=== PATIENT | male | born 1945 | race African-American/Black ===

== ENCOUNTER 2017-05-09 21:27 | Inpatient (IN) | payer MEDICARE, OTHER ==
[~2017-05-09] VITALS: Ht 167.6 cm; Wt 95.3 kg
--- NOTE | 2017-05-09 22:17 | NUR ---
71 Y/O MALE PLACED IN BED 2 WITH POSSIBLE UPPER GI BLEED. H/L 18 G PLACED LEFT AC. BLOOD DRAWN AND SENT.
[2017-05-09 22:21] LABS: BASOPHILS % (AUTO) 0.3 % (0.0-2.0); EOSINOPHILS # (AUTO) 0.6 /CMM (0.0-0.7); EOSINOPHILS % (AUTO) 4.9 % (0.0-6.0); HEMATOCRIT 50 % (39-51); HEMOGLOBIN 16.3 g/dL (13.5-17.5); LYMPHOCYTES # (AUTO) 1.2 /CMM (0.8-4.8); LYMPHOCYTES % (AUTO) 10.9 % (20.0-44.0); MEAN CORPUSCULAR HEMOGLOBIN 29 PG (26.0-33.0); MEAN CORPUSCULAR HGB CONC 33 g/dl (31.0-36.0); MEAN CORPUSCULAR VOLUME 90 fL (80-96); MONOCYTES # (AUTO) 0.3 /CMM (0.1-1.30); MONOCYTES % (AUTO) 2.7 % (2.0-12.0); NEUTROPHILS # (AUTO) 9.2 /CMM (1.8-8.9); NEUTROPHILS % (AUTO) 81.2 % (43.0-81.0); PLATELET COUNT (AUTO) 200 /CMM (150-450); RDW COEFFICIENT OF VARIATION 15.6 (11.5-15.0); RED BLOOD CELL COUNT(AUTO) 5.55 MIL/uL (4.5-6.0); WHITE BLOOD COUNT (AUTO) 11.3 K/uL (4.3-11.0)
[2017-05-09 22:32] LABS: CALCIUM, SERUM 9.6 mg/dL (8.5-10.1); CARBON DIOXIDE 32 mmol/L (21-32); CHLORIDE 110 mmol/L (98-107); GLUCOSE 118 mg/dL (74-106); SODIUM SERUM 149 mmol/L (136-145); UREA NITROGEN, BLOOD 21 mg/dL (7-18)
[2017-05-09 22:34] LABS: INR 0.98 (0.87-1.13)
[2017-05-09 22:38] LABS: TROPONIN I < 0.017 ng/mL (0.00-0.056)
[2017-05-09 22:39] LABS: ALANINE AMINOTRANSFERASE 20 U/L (12-78); ALBUMIN 3.1 g/dL (3.4-5.0); ALKALINE PHOSPHATASE 139 U/L (46-116); ASPARTATE AMINOTRANSFERASE 14 U/L (15-37); BILIRUBIN,DIRECT 0.2 mg/dL (0.0-0.2); BILIRUBIN,TOTAL 0.6 mg/dL (0.2-1.0); LIPASE 140 U/L (73-393); TOTAL PROTEIN, SERUM 9.2 g/dL (6.4-8.2)
--- NOTE | 2017-05-09 22:50 | NUR ---
PT HAS OXYGEN MASK ON TO MAINTAIN SATS. PT DROOLING COFFEE GROUND SUBSTANCE. AWAKE AND ALERT, BUT CONFUSED.
[2017-05-09] MEDS ORDERED: PANTOPRAZOLE 40 MG VIAL IV ONE (23:00)
[2017-05-09] MEDS ORDERED: PANTOPRAZOLE 40 MG VIAL ONE (23:20)
--- NOTE | 2017-05-09 23:23 | NUR ---
PT GIVEN IV PROTONIX. NO CHANGE IN CONDITION.
--- NOTE | 2017-05-09 23:38 | NUR ---
PAGED RENTAL SALESPERSON PANEL DR MCNAIR
[2017-05-10] MEDS ORDERED: ZOLPIDEM TARTRATE 5 MG TABLET PO PRN (00:30)
[2017-05-10] MEDS ORDERED: ONDANSETRON HCL/PF 4 MG/2 ML VIAL IVP PRN (00:30)
[2017-05-10] MEDS ORDERED: ACETAMINOPHEN 325 MG TABLET PO PRN (00:30)
[2017-05-10] MEDS ORDERED: Z GUARD REMEDY 2 OZ OINT TP PRN (00:30)
[2017-05-10] MEDS ORDERED: MAGNESIUM HYDROXIDE 30 ML UDC PO PRN (00:30)
[2017-05-10] MEDS ORDERED: MAG HYDROX/AL HYDROX/SIMETH 30 ML UDC PO PRN (00:30)
[2017-05-10] MEDS ORDERED: PANTOPRAZOLE 40 MG VIAL IV ONE (01:00)
--- NOTE | 2017-05-10 01:17 | NUR ---
PT ADMITTED TO DR. MCNAIR. ADMITTING ORDERS PLACED. ROOM OBTAINED REPORT CALLED TO OWEN. PREPARING PT FOR TRANSFER TO FLOOR.
--- NOTE | 2017-05-10 01:40 | NUR ---
RN CONNIE ADMISSION NOTES, RECEIVED PATIENT 71YO ADMITTED FROM EMERGENCY ROOM, ACCOMPANIED BY 2 STAFF VIA STRETCHER, UNDER THE MEDICAL SERVICES OF DR MCNAIR, WITH ADMITTING DIAGNOSES OF GI BLEED, ENCEPHALOPATHY CHRONIC, H/O PARALYSIS, AFIB, CARDIOMEGALY, GT IN PLACE, H/ PACEMAKER, PATIENT ON 6L VIA MASK WITH SATURATION LEVEL OF 94% AT THIS TIME, LUNGS SOUNDS CLEAR UPON AUSCULTATION, NO SOB OR ACUTE DISTRESS NOTED, AFEBRILE AT THIS TIME, SKIN DRY, WARM AND INTACT, NO ACTIVE BLEEDING NOTED AT THIS TIME, IV SITE IN LEFT ANTECUBITAL, BOWEL MOVEMENT NOTED AT THIS TIME, POSITIVE BOWEL SOUNDS UPON AUSCULTATION, BED BATH GIVEN UPON ADMISSION, KEPT DRY AND CLEAN, BED LOCKED AND IN LOWEST POSITION, CALL LIGHT W/I REACH, WILL CONTINUE TO MONITOR CLOSELY.
--- NOTE | 2017-05-10 01:40 | NUR ---
RN CONNIE ADMISSION NOTES, UPON ADMISISION VS FOLLOW 107/80, 97.0, 107, 22, 94% ON 6LMP VIA MASK, NO S/S OF ANY ACUTE DISTRESS NOTED AT THIS TIME.
--- NOTE | 2017-05-10 01:40 | NUR ---
PT TRANSFERRED TO CONNIE.
[2017-05-10] MEDS: IV NS 0.9% 1,000 ML IV PRN (02:17)
[2017-05-10 04:00] VITALS: BP 149/85
--- NOTE | 2017-05-10 06:50 | NUR ---
RN CONNIE CLOSING NOTES, PATIENT SLEEPING IN BED, BREATHING EVEN AND UNLABORED , NO S/S OF SOB OR RESPIRATORY DISTRESS NOTED ON 6LMP VIA MASK, SATURATION AT THIS TIME 98%, KEPT DRY AND CLEAN, PIV LINE IN LEFT AC, INTACT AND PATENT, ON IVF AT 75ML/HR, NO S/S OF ACTIVE BLEEDING NOTED, NO COFFEE GROUND EMESIS EPISODES THROUGHOUT THE SHIFT,INFUSING WELL AND PATIENT TOLERATING WELL, BED LOCKED AND IN LOWEST POSITION, CALL LIGHT W/I REACH, WILL ENDORSE CONTINUITY OF CARE TO NEXT NURSE.
[2017-05-10 08:00] VITALS: BP 101/69
--- NOTE | 2017-05-10 08:00 | NUR ---
CONNIE RN NOTES, PATIENT SLEEPING IN BED,AWAKE WHEN CALLING HIS NAME , BREATHING EVEN BUT SLIGHTLY LABORED , N 6LMP VIA MASK, SATURATION AT THIS TIME 98%, KEPT DRY AND CLEAN,HL LINE IN LEFT AC, INTACT AND PATENT, ON IVF AT 75ML/HR, NO S/S OF ACTIVE BLEEDING NOTED, NO COFFEE GROUND EMESIS EPISODES AT THIS TIME AND PATIENT , BED LOCKED AND IN LOWEST POSITION, CALL LIGHT W/I REACH, WILL CONT OF CARE CLOSELY, ON TELE MONITOR WITH 1 ST WITH IST DEGREE AV BLOCK ,
[2017-05-10] MEDS: PANTOPRAZOLE 40 MG VIAL IV SCH (08:38)
[2017-05-10] MEDS ORDERED: MULT-213 GT (08:57)
[2017-05-10] MEDS ORDERED: MONT10TA22 GT (08:57)
[2017-05-10] MEDS ORDERED: BISA10SU8 RC (08:57)
[2017-05-10] MEDS ORDERED: CARV3.122 GT (08:57)
[2017-05-10] MEDS ORDERED: ASCO-340 GT (08:57)
[2017-05-10] MEDS ORDERED: ATRO10DR SL (08:57)
[2017-05-10] MEDS ORDERED: LACT-96 GT (08:57)
[2017-05-10] MEDS ORDERED: LACT100C2 GT (08:57)
[2017-05-10] MEDS ORDERED: NA P133E RC (08:57)
[2017-05-10] MEDS ORDERED: IPRA3AMP IH (08:57)
[2017-05-10] MEDS ORDERED: ACET-868 GT (08:57)
--- NOTE | 2017-05-10 09:56 | NUR ---
CONNIE RN NOTE SPOKE WITH DR DUARTE NOTIFIED THAT PATIENT WITH CHEST CONGESTION AND CHEST X RAY RESULT ALSO NOTIFIED THAT ON 6L SIMPLE MASK SAT 93% , STATED TO DO ABG CALLED YVETTE CHAPIN TO DO ABG, WILL F\U
[2017-05-10 10:40] LABS: ABG BASE EXCESS 3.1 mmol/L; ABG PO2 85.1 mmHg (75.0-100.0); AaDO2 179.6 mmHg; COHb 0.4 % (0.5-1.5); MetHb 0.5 % (0.0-1.5); O2Hb 95.1 % (94.0-97.0); SITE, ABG Left Brachial; VENT MODE, BG SIMPLE MASK
--- NOTE | 2017-05-10 10:42 | NUR ---
CONNIE RN NOTE SPOKE WITH DR MCNAIR NOTIFIED THAT PATIENT ON SIMPLE MASK SAT 93% ALSO OK TO HOLD G TUBE FEEDING AT THIS D\C LIQUID DIET
[2017-05-10] MEDS ORDERED: BISACODYL SUPP (10 MG) 10 MG/SUPP.RECT SUPP.RECT RC PRN (11:00)
[2017-05-10 11:50] LABS: BASOPHILS % (AUTO) 0.3 % (0.0-2.0); EOSINOPHILS # (AUTO) 0.3 /CMM (0.0-0.7); HEMATOCRIT 43 % (39-51); HEMOGLOBIN 14.3 g/dL (13.5-17.5); LYMPHOCYTES # (AUTO) 1.3 /CMM (0.8-4.8); LYMPHOCYTES % (AUTO) 15.2 % (20.0-44.0); MEAN CORPUSCULAR HEMOGLOBIN 30 PG (26.0-33.0); MEAN CORPUSCULAR HGB CONC 34 g/dl (31.0-36.0); MEAN CORPUSCULAR VOLUME 88 fL (80-96); MONOCYTES # (AUTO) 0.5 /CMM (0.1-1.30); MONOCYTES % (AUTO) 5.6 % (2.0-12.0); NEUTROPHILS # (AUTO) 6.6 /CMM (1.8-8.9); NEUTROPHILS % (AUTO) 75.9 % (43.0-81.0); PLATELET COUNT (AUTO) 173 /CMM (150-450); RDW COEFFICIENT OF VARIATION 15.4 (11.5-15.0); RED BLOOD CELL COUNT(AUTO) 4.81 MIL/uL (4.5-6.0); WHITE BLOOD COUNT (AUTO) 8.6 K/uL (4.3-11.0)
[2017-05-10 12:00] VITALS: BP_SYST 103; BP_SYST 129; BP_DIAS 67; BP_DIAS 69
--- NOTE | 2017-05-10 12:09 | NUR ---
vani rn note per dr carlson keep npo till gi consult came ,ok to cont ivf as ordered
[2017-05-10] MEDS: MONTELUKAST SODIUM (10MG) 10 MG TABLET GT SCH (12:25)
[2017-05-10] MEDS: CARVEDILOL 3.125 MG TABLET GT SCH ×2 (12:25→16:33)
--- NOTE | 2017-05-10 13:19 | NUR ---
MS RN NOTE ENDORSED CARE TO DELMAR CHAN
[2017-05-10] MEDS: IPRATROPIUM NEB FS 0.5 MG/2.5 ML AMPUL.NEB NEB SCH ×3 (15:12→23:22)
[2017-05-10] MEDS: ALBUTEROL HALF STRENGTH 1.25 MG/3 ML VIAL.NEB NEB SCH ×4 (15:12→23:21)
--- NOTE | 2017-05-10 15:39 | NUR ---
RN NOTES RECEIVED PT FROM ROCIO MCFARLAND FOR CONTINUITY OF CARE. PT ON 6L FACE MASK SATING WELL NO SOB OR DISTRESS. A&0X1, GRUNTS. SR ON THE TELE LEANNE WITH 1ST DEGREE AV BLOCK. L ARM 18G IV SITE INTACT. IVF AT 75ML/HR. PT CURRENTLY NPO. CALL LIGHT WITHIN REACH, BED LOCKED AND IN LOWEST POSITION, WILL CONT TO LEANNE
[2017-05-10 16:00] VITALS: BP 102/67
[2017-05-10] MEDS: PIPERACILLIN /TAZOBACTAM 3.375 G in IV D5W 50 ML IV SCH ×2 (16:33→21:08)
--- NOTE | 2017-05-10 18:33 | NUR ---
RN NOTES PT REMAINED IN STABLE CONDITION THROUGHOUT THE SHIFT ALL NEEDS MET. TOLERATING O2. SAT. CONSENT OBTAINED FOR EGD FROM [facility]. WILL ENDORSE TO ONCOMING SHIFT.
[2017-05-10 20:00] VITALS: BP 110/58
--- NOTE | 2017-05-10 20:00 | NUR ---
RN INITIAL NOTES RECEIVED PT IN BED.PT IS CONFUSED. PT ON 6L FACE MASK SATING WELL NO SOB OR DISTRESS. A&0X1, GRUNTS. L ARM 18G IV SITE INTACT. IVF AT 75ML/HR. CALL LIGHT WITHIN REACH, BED LOCKED AND IN LOWEST POSITION, WILL CONT TO LEANNE
[2017-05-11] VITALS: BP 110/58
[2017-05-11] MEDS: IPRATROPIUM NEB FS 0.5 MG/2.5 ML AMPUL.NEB NEB SCH ×6 (03:22→23:19)
[2017-05-11] MEDS: ALBUTEROL HALF STRENGTH 1.25 MG/3 ML VIAL.NEB NEB SCH ×6 (03:22→23:19)
[2017-05-11 04:00] VITALS: BP 110/58
[2017-05-11] MEDS: PIPERACILLIN /TAZOBACTAM 3.375 G in IV D5W 50 ML IV SCH ×4 (04:00→22:25)
[2017-05-11] MEDS: IV NS 0.9% 1,000 ML IV PRN ×2 (04:44→05:31)
--- NOTE | 2017-05-11 06:33 | NUR ---
RN INITIAL NOTES NO CHANGE IN PT CONDITION OVER SHIFT. PT RESTING IN BED.PT IS CONFUSED. PT ON 5L NC, SATING WELL NO SOB OR DISTRESS. A&0X1, GRUNTS. L ARM 18G IV SITE INTACT. IVF AT 75ML/HR. CALL LIGHT WITHIN REACH, BED LOCKED AND IN LOWEST POSITION, WILL ENDORSE TO NEXT SHIFT.
[2017-05-11 07:22] LABS: BASOPHILS % (AUTO) 0.4 % (0.0-2.0); EOSINOPHILS # (AUTO) 0.5 /CMM (0.0-0.7); EOSINOPHILS % (AUTO) 5.8 % (0.0-6.0); HEMATOCRIT 41 % (39-51); HEMOGLOBIN 13.4 g/dL (13.5-17.5); LYMPHOCYTES # (AUTO) 1.1 /CMM (0.8-4.8); MEAN CORPUSCULAR HEMOGLOBIN 29 PG (26.0-33.0); MEAN CORPUSCULAR HGB CONC 33 g/dl (31.0-36.0); MEAN CORPUSCULAR VOLUME 90 fL (80-96); MONOCYTES # (AUTO) 0.5 /CMM (0.1-1.30); MONOCYTES % (AUTO) 6.1 % (2.0-12.0); NEUTROPHILS % (AUTO) 73.7 % (43.0-81.0); PLATELET COUNT (AUTO) 150 /CMM (150-450); RDW COEFFICIENT OF VARIATION 15.5 (11.5-15.0); RED BLOOD CELL COUNT(AUTO) 4.57 MIL/uL (4.5-6.0); WHITE BLOOD COUNT (AUTO) 8.2 K/uL (4.3-11.0)
[2017-05-11 07:46] LABS: ALANINE AMINOTRANSFERASE 12 U/L (12-78); ALBUMIN 2.3 g/dL (3.4-5.0); ALKALINE PHOSPHATASE 98 U/L (46-116); ASPARTATE AMINOTRANSFERASE 21 U/L (15-37); CALCIUM, SERUM 8.6 mg/dL (8.5-10.1); CARBON DIOXIDE 30 mmol/L (21-32); CHLORIDE 112 mmol/L (98-107); CREATININE 1.1 mg/dL (0.6-1.3); GLUCOSE 86 mg/dL (74-106); PHOSPHORUS 3.7 mg/dL (2.5-4.9); POTASSIUM 3.8 mmol/L (3.5-5.1); SODIUM SERUM 149 mmol/L (136-145); TOTAL PROTEIN, SERUM 7.1 g/dL (6.4-8.2); UREA NITROGEN, BLOOD 23 mg/dL (7-18)
[2017-05-11 08:00] VITALS: BP 101/79
[2017-05-11] MEDS: MONTELUKAST SODIUM (10MG) 10 MG TABLET GT SCH (09:00)
[2017-05-11] MEDS: CARVEDILOL 3.125 MG TABLET GT SCH ×2 (09:00→16:33)
[2017-05-11] MEDS: PANTOPRAZOLE 40 MG VIAL IV SCH (09:00)
[2017-05-11 09:12] LABS: CHOLESTEROL 109 mg/dL (<200); HDL CHOLESTEROL 38 mg/dL (40-60); LDL 69 mg/dL (0-99); TRIGLYCERIDES 52 mg/dL (30-150)
--- NOTE | 2017-05-11 15:00 | NUR ---
MED SURGE NOTE PT RETURNED FROM EGD. PT STABLE. PT SPO2 97% B/P 131/83 [id number]. ALL SAFETY MEASURES IN PLACE WILL CONTINUE TO MONITOR CLOSELY.
--- NOTE | 2017-05-11 15:23 | NUR ---
MED SURG NOTE SPOKE TO MAURICE ROMERO RN. VERIFIED JEVITY 55 ML/HR FROM [facility]. CALLED PHARMACY REGARDING GTF SOH REPLACES WITH FIBERSOURCE. PER DR. IQBAL RESUME GTF. ORDER ENTERED.
[2017-05-11 16:00] VITALS: BP 122/85
[2017-05-11] MEDS: FIBERSOURCE HN 1,000 ML BOTTLE GT PRN (16:12)
[2017-05-11 20:00] VITALS: BP 120/66
--- NOTE | 2017-05-12 01:05 | NUR ---
RN NOTES RECEIVED PATIENT IN BED AWAKE, AO X 1, MUMBLES WORDS, RESPONSIVE TO VOICE AND TOUCH. NO SIGN OF ACUTE DISTRESS NOTED. NO SIGNS OF PAIN NOTED. IV SITE PATENT, INTACT; IVF INFUSING ORDERED. GT PATENT, INTACT; IN PLACE VIA AUSCULTATION. GTF ONGOING ORDERED; 10 ML RESIDUAL NOTED. ON LOW BED WITH BILATERAL UPPER SIDE RAILS UP. CALL NGUYEN WITHIN EASY REACH. WILL CONTINUE TO MONITOR.
[2017-05-12] MEDS: IV NS 0.9% 1,000 ML IV PRN ×2 (01:25→16:34)
[2017-05-12] MEDS: IPRATROPIUM NEB FS 0.5 MG/2.5 ML AMPUL.NEB NEB SCH ×6 (03:24→23:46)
[2017-05-12] MEDS: ALBUTEROL HALF STRENGTH 1.25 MG/3 ML VIAL.NEB NEB SCH ×6 (03:27→23:46)
[2017-05-12] MEDS: PIPERACILLIN /TAZOBACTAM 3.375 G in IV D5W 50 ML IV SCH ×4 (04:08→21:05)
--- NOTE | 2017-05-12 06:08 | NUR ---
RN NOTES PATIENT ASLEEP, EASILY AROUSABLE. RESPIRATIONS EVEN. NO SIGNS OF PAIN NOTED. DUE MED GIVEN WITH NO ASE NOTED. NEEDS ATTENDED. SAFETY PRECAUTIONS AND COMFORT MEASURES IN PLACE. WILL GIVE REPORT TO DAY SHIFT FOR CONTINUITY OF CARE.
[2017-05-12 08:00] VITALS: BP 101/69
--- NOTE | 2017-05-12 08:00 | NUR ---
MS RN NOTE PATIENT IN BED, AWAKE WITH CONFUSION , ALERT TIME 1 ,ON 4L NS ,SAT 96% , ON G TUBE FEEDING ORDERED , KEEP HOB ELEVATED AT ALL , WITH G TUBE FEEDING INCREASED TO 45 ML PER HOUR , NO RESIDUAL AT THIS SAÚL TIME, , BED IN LOWEST AND LOCKED POSITION , RT FA HL INTACT ON IVF ORDERED CALL LIGHT WITHIN REACH , WILL CONT TO MONITOR CLOSELY
[2017-05-12] MEDS: PANTOPRAZOLE 40 MG VIAL IV SCH ×2 (08:50→16:21)
[2017-05-12] MEDS: SUCRALFATE 1 G TABLET GT SCH ×3 (08:50→16:21)
[2017-05-12] MEDS: MONTELUKAST SODIUM (10MG) 10 MG TABLET GT SCH (08:50)
[2017-05-12] MEDS: CARVEDILOL 3.125 MG TABLET GT SCH ×2 (08:51→16:22)
--- NOTE | 2017-05-12 09:00 | NUR ---
MS RN NOTE SEEN BY RT ON BREATHING TX NOW, ON 3L NC SAT 94%, WILL CONT TO MONITOR CLOSELY
--- NOTE | 2017-05-12 12:00 | NUR ---
MS RN NOTE SEEN BY DR MCNAIR AWARE THAT PATINT HAS PRODUCTIVE COUGH STATED CONT TO DO BREATHING TX
[2017-05-12 16:09] VITALS: BP 102/67
--- NOTE | 2017-05-12 17:00 | NUR ---
MS RN NOTE ALL NEEDS ATTENDED KEEP CLEAN DRY , NOT IN ACUTE DISTRESS
--- NOTE | 2017-05-12 18:28 | NUR ---
MS RN NOTE PER DR MCNAIR OK TO HOLD DISCHARGE, [facility] [employer] AWARE, WILL CONT TO MONITOR CLOSELY
--- NOTE | 2017-05-12 19:30 | NUR ---
RN/MS NOTES: PATIENT IN BED. AWAKE WITH CONFUSION. ALERT X 1 MUMBLES WORDS. ON 3LPM VIA N/C SAT. 98%. ON G TUBE FEEDING TOLERATED WELL W/ NO RESIDUAL NOTED. KEEP HOB ELEVATED AT ALL. BED IN LOWEST AND LOCKED POSITION. RT FA HL PATENT AND INTACT W/ NO S/S OF INFECTION/INFILTRATION NOTED. IVF CONTINUES ORDER. CALL LIGHT WITHIN REACH. WILL CONT TO MONITOR CLOSELY.
[2017-05-12 20:00] VITALS: BP 113/71
[2017-05-13] MEDS: FIBERSOURCE HN 1,000 ML BOTTLE GT PRN (00:03)
[2017-05-13] MEDS: PIPERACILLIN /TAZOBACTAM 3.375 G in IV D5W 50 ML IV SCH ×2 (03:28→09:35)
[2017-05-13] MEDS: IPRATROPIUM NEB FS 0.5 MG/2.5 ML AMPUL.NEB NEB SCH ×4 (03:32→15:30)
[2017-05-13] MEDS: ALBUTEROL HALF STRENGTH 1.25 MG/3 ML VIAL.NEB NEB SCH ×4 (03:32→15:30)
[2017-05-13] MEDS: IV NS 0.9% 1,000 ML IV PRN (05:25)
--- NOTE | 2017-05-13 07:06 | NUR ---
RN/MS NOTES: NO ACUTE DISTRESS NOTED DURING THIS SHIFT. REPORT GIVEN TO AM NURSE FOR KAILEY.
[2017-05-13 08:00] VITALS: BP 112/73
--- NOTE | 2017-05-13 08:00 | NUR ---
M/S RN - Notes Patient awake, alert to self, on 3 lpm via NC, afebrile, no s/s of pain, no active bleeding seen, hgb/hct level stable. GTF Fibersource at 55 ml/hr tolerating well, no residual, no vomiting. Patient for possible discharge back to [facility] today if he continues to be stable.
[2017-05-13] MEDS: PANTOPRAZOLE 40 MG VIAL IV SCH (08:16)
[2017-05-13] MEDS: MONTELUKAST SODIUM (10MG) 10 MG TABLET GT SCH (08:16)
[2017-05-13] MEDS: SUCRALFATE 1 G TABLET GT SCH ×2 (08:16→12:18)
[2017-05-13] MEDS: CARVEDILOL 3.125 MG TABLET GT SCH (08:16)
[2017-05-13 12:00] VITALS: BP 99/71
--- NOTE | 2017-05-13 15:10 | NUR ---
M/S RN - Md order Dr. Espinosa made aware that SNF doesn't want to accept the patient with Zosyn 3.375 gms IV Q6H x 7 days. Per Simba Brooks [facility] warehouse director, they can only take IV antibiotic if it's q12h. Dr. Espinosa changed medication to Augmentin 875-125 mg oral q12h x 7 days. Simba Brooks RN ([facility]) was notified of new order and will accept the patient now.
--- NOTE | 2017-05-13 15:45 | NUR ---
M/S RN - Discharge Patient alert to self, discharged to [facility] in stable condition. Reviewed discharge instructions with Dilcia RN [phone] and she verbalized full understanding and all questions answered to her satisfaction. Patient with no belongings. VSS, denies pain, afebrile, no c/o SOB, on 3 lpm via NC, no apparent distress seen. Heplock removed on the RFA with catheter tip intact, no redness and no swelling noted at the site. Skin is intact, photo to taken for reference. Discharge papers sent with ambulance crew. Family aware of discharge.
[2017-05-13] MEDS ORDERED: AMOX/CLAVULANATE 875 MG TABLET PO SCH (21:00)
== END 2017-05-13 15:49 | DRG 377 ==
LOC: ER 21:29 → TELE-TD 05-10 00:49 → MEDSG1 05-10 12:20
PROVIDERS: ADMIT Internal Medicine; ATTEND Internal Medicine
PROC: 0DB98ZX Excision of Duodenum, Via Natural or Artificial Opening Endoscopic, Diagnostic (ICD-10-PCS; 2017-05-11)
PROC: 0DB58ZX Excision of Esophagus, Via Natural or Artificial Opening Endoscopic, Diagnostic (ICD-10-PCS; 2017-05-11)
PROC: 0DB68ZX Excision of Stomach, Via Natural or Artificial Opening Endoscopic, Diagnostic (ICD-10-PCS; principal; 2017-05-11 14:14)
DX: K25.4 Chronic or unspecified gastric ulcer with hemorrhage (principal); G93.41 Metabolic encephalopathy; J96.01 Acute respiratory failure with hypoxia; J15.6 Pneumonia due to other Gram-negative bacteria; R13.10 Dysphagia, unspecified; D64.9 Anemia, unspecified; F03.90 Unspecified dementia, unspecified severity, without behavioral disturbance, psychotic disturbance, mood disturbance, and anxiety; G40.909 Epilepsy, unspecified, not intractable, without status epilepticus; I48.91 Unspecified atrial fibrillation; K22.10 Ulcer of esophagus without bleeding; J44.0 Chronic obstructive pulmonary disease with (acute) lower respiratory infection; K29.80 Duodenitis without bleeding; I10 Essential (primary) hypertension; Z93.1 Gastrostomy status; F09 Unspecified mental disorder due to known physiological condition; K44.9 Diaphragmatic hernia without obstruction or gangrene; K29.70 Gastritis, unspecified, without bleeding; Z95.0 Presence of cardiac pacemaker
CPT/HCPCS: 36415; 36600; 71045-TC; 80048-TC; 80053-TC; 80061-TC; 80076-TC; 82803-TC; 83690-TC; 83735-TC; 84100-TC; 84484-TC; 85025-TC; 85730-TC; 86850-TC; 87081-TC; 88305-TC; 88313-TC; 88342; 94799-TC; A4606; A6402; C9113; J2543; J2704; J7030; J7060; Z7610